=== PATIENT | male | born 1950 | race Native Hawaiian/Other Pacific Islander ===

== ENCOUNTER 2017-06-08 10:44 | Observation (INO) | payer OTHER ==
[2017-06-08 11:37] LABS: BASO # 0.1 K/uL (0.0-0.2); BASO % 0.7 % (0.0-2.0); EOS # 0.1 K/uL (0.0-0.7); EOS % 1.3 % (0.0-4.0); HEMOGLOBIN 14.3 g/dL (12.0-18.0); LYMPH # 1.4 K/uL (1.0-4.3); LYMPH % 18.4 % (20.0-40.0); MEAN CELL VOLUME 87.9 fL (80.0-94.0); MEAN CORPUSCULAR HEMOGLOBIN 30.8 pg (27.0-31.0); MEAN PLATELET VOLUME 7.7 fL (7.2-11.7); MONO # 0.4 K/uL (0.0-0.8); MONO % 5.4 % (0.0-10.0); NEUT # 5.6 K/uL (1.8-7.0); NEUT % 74.2 % (50.0-75.0); RBC 4.64 Mil/uL (4.40-5.90); RED CELL DISTRIBUTION WIDTH 12.9 % (11.5-14.5); WHITE BLOOD COUNT 7.5 K/uL (4.8-10.8)
[2017-06-08 11:53] LABS: ALB/GLOB RATIO 1.1 (1.0-2.1); ALBUMIN 3.9 g/dL (3.5-5.0); ALT/SGPT 24 U/L (21-72); AST/SGOT 28 U/L (17-59); BLOOD UREA NITROGEN 13 mg/dL (9-20); CALCIUM 8.9 mg/dl (8.6-10.4); GFR AFRICAN-AMERICAN > 60; GFR NON-AFRICAN AMERICAN > 60
[2017-06-08] MEDS ORDERED: Iodixanol 320 MG/ML 100 ML BOTTLE IV ONE (12:57)
--- NOTE | 2017-06-08 15:04 | CT ---
PROCEDURE: CT scan temporal bones dated 06/08/2017 COMPARISON: No prior study available for comparison TECHNIQUE: High resolution axial images of the temporal bones were obtained following intravenous injection of approximately 100 cc Visipaque 320 contrast material. . Coronal and sagittal reformats were generated. Radiation dose: Total exam DLP = 1410.79 mGy-cm. This CT exam was performed using one or more of the following dose reduction techniques: Automated exposure control, adjustment of the mA and/or kV according to patient size, and/or use of iterative reconstruction technique. HISTORY: Right ear drainage FINDINGS: The current study reveals a relatively large abscess collection that contains multiple bubbles of air and extends inferior and dorsal to the right pinna and extends superiorly into the right temporalis musculature. The abscess and inflammatory changes surrounding the external auditory canal though do not appear to extend into the canal itself. The subjacent cortical bone intact without destructive changes. Note that the inferior extent of this abscess is not completely visualized and appear to abut the posterior margin of the right parotid gland. It is unclear whether this involves the parotid gland itself or just abuts the parotid and results in some compressive effects. . . Note also that is unclear from this exam as to whether the right pinna itself is involved in the at aforementioned infectious process new. Clinical correlation with physical exam recommended. The soft tissues within the right external auditory canal as well as the subjacent cortical bone intact. The right middle ear canal is unremarkable. Right mastoid air complex slightly underpneumatized though otherwise clear. New The inner ear structures and internal auditory canals unremarkable. Note made of a small cerumen plug within the superficial margin left external auditory canal. The left middle ear canal unremarkable. . The left mastoid air complex slightly underpneumatized of clear. Inner ear structures and internal auditory canal on the left side unremarkable. Minor polypoid like mucosal thickening left and to a much lesser degree right maxillary antra. Minor mucosal thickening seen within a few ethmoid air cells extending superiorly into the inferior margin of the frontal sinus. IMPRESSION: There is an relatively large (that contains multiple bubbles of air) that involves the subcutaneous tissues abutting and dorsal to the right pinna extending superiorly into the right temporalis musculature. Surrounding infiltration changes in the subcutaneous fat as well. The abscess and inflammatory changes appear to surround the however margin of the external auditory canal though do not appear to extend into the canal itself. . No cortical destructive changes are identified. . Note that the inferior extent of the abscess is not visualized on this exam though does abut the posterior margin of the right parotid gland. There may be compressive effects on the posterior margin of the right parotid gland though is unclear whether the abscess on involves the parotid gland itself. Clinical correlation with physical exam recommended. Note also that is unclear from this exam as to whether the right pinna itself is involved in the at aforementioned infectious process new. Clinical correlation with physical exam recommended. Note that these findings were discussed with the Dr. Bess 2:48 p.m. with written down and read back verification.
--- NOTE | 2017-06-08 15:39 | C.PDOC ---
History Of Present Illness 66 year old male is sent to the ED by Tom for evaluation. Patient had been experiencing right ear discharge for 4-5 weeks. He was seen in Dr. Santos's office earlier today and his ear was flushed. Patient became dizzy for a few seconds, but his symptoms self-resolved. Patient did not experience dizziness afterwards and denies such symptoms at the time. He was sent to the ED for labwork and CT scan. Patient denies fever, chills. Chief Complaint (Nursing): ENT Problem History Per: Patient History/Exam Limitations: None Onset/Duration Of Symptoms: Other (4-5 weeks ) Current Symptoms Are (Timing): Better Past Medical History Reviewed: Historical Data, Nursing Documentation, Vital Signs Vital Signs: Last Vital Signs Temp 97.7 F 06/08/17 15:30 Pulse 80 06/08/17 15:30 Resp 18 06/08/17 15:30 BP 131/73 06/08/17 15:30 Pulse Ox 98 06/08/17 16:40 - Medical History PMH: No Chronic Diseases Surgical History: No Surg Hx Family History: States: Unknown Family Hx - Social History Hx Alcohol Use: No Hx Substance Use: No - Immunization History Hx Tetanus Toxoid Vaccination: No Hx Influenza Vaccination: No Hx Pneumococcal Vaccination: No Review Of Systems Constitutional: Negative for: Fever, Chills ENT: Positive for: Ear Discharge (right) Physical Exam - Physical Exam Appears: Non-toxic, No Acute Distress Skin: Normal Color, Warm, Dry Head: Atraumatic, Normacephalic Eye(s): bilateral: Normal Inspection Ear(s): Left: Normal, Right: Other (white discharge. Unable to visualize TM ) Oral Mucosa: Moist Neck: Supple Chest: Symmetrical, No Deformity, No Tenderness Cardiovascular: Rhythm Regular, No Murmur Respiratory: Normal Breath Sounds, No Rales, No Rhonchi, No Wheezing Extremity: Normal ROM, Capillary Refill (less than 2 seconds ) Neurological/Psych: Oriented x3, Normal Speech, Normal Cognition ED Course And Treatment - Laboratory Results Result Diagrams: 06/08/17 11:31 06/08/17 11:31 O2 Sat by Pulse Oximetry: 98 (on RA) Pulse Ox Interpretation: Normal Medical Decision Making Medical Decision Making: Impression: right ear discharge Plan: * bloodwork * CT Internal Auditory Canal * reassess and disposition Progress: Bloodwork and CT Internal Auditory Canal ordered and reviewed. Spoke with Dr. Santos after reviewing CT scan. Patient will be admitted to medicine for IV antibiotics and will get surgical consult. Case discussed with Dr. Ashley Rodriguez, who wishes to have Dr. Iyer as surgical consult. resident surgeon paged. Disposition - Disposition Disposition Time: 16:00 Condition: STABLE - Clinical Impression Clinical Impression: Abscess of church region - Scribe Statement The provider has reviewed the documentation as recorded by the Scribe (Lalitha Rodriguez) Provider Attestation: All medical record entries made by the Scribe were at my direction and personally dictated by me. I have reviewed the chart and agree that the record accurately reflects my personal performance of the history, physical exam, medical decision making, and the department course for this patient. I have also personally directed, reviewed, and agree with the discharge instructions and disposition.
[2017-06-08] MEDS ORDERED: Piperacill/Tazo 4.5gm in Dex 4.5 GM/100 ML BAG IVPB STA (16:17)
--- NOTE | 2017-06-08 18:34 | CP.PCM.HP ---
Past Patient History - Past Social History Smoking Status: Former Smoker - PSYCHIATRIC Hx Substance Use: No - SURGICAL HISTORY Hx Surgeries: No - ANESTHESIA Hx Anesthesia: No Meds Allergies/Adverse Reactions: Allergies Allergy/AdvReac Type Severity Reaction Status Date / Time No Known Allergies Allergy Unverified 06/08/17 10:56 Physical Exam - Constitutional Appears: Well - Head Exam Head Exam: ATRAUMATIC, NORMAL INSPECTION, NORMOCEPHALIC - Eye Exam Eye Exam: EOMI, Normal appearance, PERRL Pupil Exam: NORMAL ACCOMODATION, PERRL - ENT Exam ENT Exam: Mucous Membranes Moist, Normal Exam - Neck Exam Neck exam: Positive for: Normal Inspection - Respiratory Exam Respiratory Exam: Decreased Breath Sounds - Cardiovascular Exam Cardiovascular Exam: REGULAR RHYTHM, +S1, +S2 - GI/Abdominal Exam GI & Abdominal Exam: Diminished Bowel Sounds, Soft - Rectal Exam Rectal Exam: Deferred Results - Vital Signs Recent Vital Signs: Last Vital Signs Temp 97.7 F 06/08/17 15:30 Pulse 80 06/08/17 15:30 Resp 18 06/08/17 15:30 BP 131/73 06/08/17 15:30 Pulse Ox 98 06/08/17 18:14 - Labs Result Diagrams: 06/08/17 11:31 06/08/17 11:31 Labs: Laboratory Results - last 24 hr 06/08/17 06/08/17 11:31 11:31 WBC 7.5 RBC 4.64 Hgb 14.3 Hct 40.7 MCV 87.9 MCH 30.8 MCHC 35.0 RDW 12.9 Plt Count 235 MPV 7.7 Neut % (Auto) 74.2 Lymph % (Auto) 18.4 L [place] % (Auto) 5.4 Eos % (Auto) 1.3 Baso % (Auto) 0.7 Neut # (Auto) 5.6 Lymph # (Auto) 1.4 [place] # (Auto) 0.4 Eos # (Auto) 0.1 Baso # (Auto) 0.1 Sodium 137 Potassium 4.7 Chloride 99 Carbon Dioxide 29 Anion Gap 14 BUN 13 Creatinine 0.8 Est GFR ( Amer) > 60 Est GFR (Non-Af Amer) > 60 Random Glucose 111 H Calcium 8.9 Total Bilirubin 0.7 AST 28 ALT 24 Alkaline Phosphatase 55 Total Protein 7.3 Albumin 3.9 Globulin 3.4 Albumin/Globulin Ratio 1.1
[2017-06-08 18:57] VITALS: RESP 20
[2017-06-08] MEDS: Piperacill/Tazo 3.375gm in Dex 3.375 GM/50 ML BAG IVPB SCH (21:59)
[2017-06-09] MEDS: Piperacill/Tazo 3.375gm in Dex 3.375 GM/50 ML BAG IVPB SCH ×4 (02:19→20:49)
[2017-06-09] MEDS: Pantoprazole 40 mg EC Tab PO SCH (11:06)
[2017-06-09] MEDS: Enoxaparin 40 mg Syringe SC SCH (11:07)
--- NOTE | 2017-06-09 17:02 | CP.PCM.PN ---
Subjective - Date & Time of Evaluation Date of Evaluation: 06/09/17 Time of Evaluation: 07:40 - Subjective Subjective: clinically same Objective - Vital Signs/Intake and Output Vital Signs (last 24 hours): Temp Pulse Resp BP Pulse Ox 97.3 F L 84 20 113/65 98 06/09/17 16:26 06/09/17 16:26 06/09/17 16:26 06/09/17 16:26 06/09/17 16:26 - Medications Medications: Current Medications Enoxaparin Sodium (Lovenox) 40 mg SC DAILY [facility] Last Admin: 06/09/17 11:07 Dose: Not Given Piperacillin Sod/Tazobactam Sod (Zosyn 3.375 Gm Iv Premix) 3.375 gm in 50 mls @ 100 mls/hr IVPB Q6H [facility] PRN Reason: Protocol Stop: 06/18/17 21:01 Last Admin: 06/09/17 14:05 Dose: 100 mls/hr Pantoprazole Sodium (Protonix Ec Tab) 40 mg PO DAILY [facility] Last Admin: 06/09/17 11:06 Dose: Not Given Pneumococcal Polyvalent Vaccine (Pneumovax 23 Vaccine) 0.5 ml IM .ONCE ONE Stop: 06/11/17 10:01 - Labs Labs: 06/08/17 11:31 06/08/17 11:31 - Constitutional Appears: Well - Head Exam Head Exam: ATRAUMATIC, NORMAL INSPECTION, NORMOCEPHALIC - Eye Exam Eye Exam: EOMI, Normal appearance, PERRL Pupil Exam: NORMAL ACCOMODATION, PERRL - ENT Exam ENT Exam: Mucous Membranes Moist, Normal Exam - Neck Exam Neck Exam: Full ROM, Normal Inspection. absent: Lymphadenopathy - Respiratory Exam Respiratory Exam: Decreased Breath Sounds - Cardiovascular Exam Cardiovascular Exam: REGULAR RHYTHM, +S1, +S2 - GI/Abdominal Exam GI & Abdominal Exam: Soft, Diminished Bowel Sounds - Rectal Exam Rectal Exam: Deferred
[2017-06-10] MEDS: Piperacill/Tazo 3.375gm in Dex 3.375 GM/50 ML BAG IVPB SCH ×3 (03:17→14:38)
[2017-06-10] MEDS: Enoxaparin 40 mg Syringe SC SCH (10:09)
[2017-06-10] MEDS: Pantoprazole 40 mg EC Tab PO SCH (10:09)
--- NOTE | 2017-06-10 15:52 | CP.PCM.PN ---
Subjective - Date & Time of Evaluation Date of Evaluation: 06/10/17 Time of Evaluation: 08:00 - Subjective Subjective: clinically same Objective - Vital Signs/Intake and Output Vital Signs (last 24 hours): Temp Pulse Resp BP Pulse Ox 97.9 F 83 20 130/78 100 06/10/17 08:31 06/10/17 08:31 06/10/17 08:31 06/10/17 08:31 06/10/17 08:31 Intake and Output: 06/10/17 06/10/17 06:59 18:59 Intake Total 340 Balance 340 - Medications Medications: Current Medications Enoxaparin Sodium (Lovenox) 40 mg SC DAILY [facility] Last Admin: 06/10/17 10:09 Dose: 40 mg Piperacillin Sod/Tazobactam Sod (Zosyn 3.375 Gm Iv Premix) 3.375 gm in 50 mls @ 100 mls/hr IVPB Q6H [facility] PRN Reason: Protocol Stop: 06/18/17 21:01 Last Admin: 06/10/17 14:38 Dose: 100 mls/hr Pantoprazole Sodium (Protonix Ec Tab) 40 mg PO DAILY [facility] Last Admin: 06/10/17 10:09 Dose: 40 mg Pneumococcal Polyvalent Vaccine (Pneumovax 23 Vaccine) 0.5 ml IM .ONCE ONE Stop: 06/11/17 10:01 - Labs Labs: 06/08/17 11:31 06/08/17 11:31 - Constitutional Appears: Well - Head Exam Head Exam: ATRAUMATIC, NORMAL INSPECTION, NORMOCEPHALIC - Eye Exam Eye Exam: EOMI, Normal appearance, PERRL Pupil Exam: NORMAL ACCOMODATION, PERRL - ENT Exam ENT Exam: Mucous Membranes Moist, Normal Exam - Neck Exam Neck Exam: Full ROM, Normal Inspection. absent: Lymphadenopathy - Respiratory Exam Respiratory Exam: Decreased Breath Sounds - Cardiovascular Exam Cardiovascular Exam: REGULAR RHYTHM, +S1, +S2 - GI/Abdominal Exam GI & Abdominal Exam: Soft, Diminished Bowel Sounds - Rectal Exam Rectal Exam: Deferred
[2017-06-10 16:42] VITALS: BP 115/55; PULSE 78; TEMP 98.4; O2SAT 98
--- NOTE | 2017-06-10 18:30 | CP.PCM.CON ---
History of Present Illness - History of Present Illness History of Present Illness: General surgery consult note for Dr. Laura Connelly, PGY-1 Pt S & E at bedside. 66M w/no sig PMH consulted for R ear abscess. Pt reports intermittent purulent drainage and pain from right ear x 1 mo. Pt was seen by Dr. Santos as output with ear cleaning, without resolution of problem. Was sent to ED for admission and possible surgical intervention. Pt reports intermittent pain of right ear prior to purulent drainage. Pain is severe, non radiating. Admits to occasional dizziness, some episodes of diaphoresis, poor appetite. Denies N & V , F & C, changes in bowel or bladder habits, changes in vision, rhinorrhea. In ED CT auditory canal- with relatively large subQ fluid collection with air bubbles tissues abutting and dorsal to the right pinna extending superiorly into the right temporalis musculature. Surrounding infiltration changes in SubQ. No cortical destructive changes. PMH: Denies PSH: Denies All: NKDA SH: Former rolled tobacco smoker (quit 1 mo ago), denies ETOH or illicit drug use Review of Systems - Review of Systems All systems: reviewed and no additional remarkable complaints except - Constitutional Constitutional: absent: Chills, Fever, Headache - EENT Eyes: absent: Change in Vision Ears: Dizziness Nose/Mouth/Throat: absent: Sore Throat - Cardiovascular Cardiovascular: absent: Chest Pain - Respiratory Respiratory: absent: Cough - Gastrointestinal Gastrointestinal: absent: Abdominal Pain, Nausea, Vomiting - Musculoskeletal Musculoskeletal: absent: Numbness, Tingling - Integumentary Integumentary: absent: New Lesions - Neurological Neurological: Dizziness - Psychiatric Psychiatric: Change in Appetite (decreased) Past Patient History - Past Social History Smoking Status: Former Smoker - MUSCULOSKELETAL/RHEUMATOLOGICAL Hx Falls: No - PSYCHIATRIC Hx Substance Use: No - SURGICAL HISTORY Hx Surgeries: No - ANESTHESIA Hx Anesthesia: No Meds Allergies/Adverse Reactions: Allergies Allergy/AdvReac Type Severity Reaction Status Date / Time No Known Allergies Allergy Unverified 06/08/17 10:56 - Medications Medications: Current Medications Enoxaparin Sodium (Lovenox) 40 mg SC DAILY [facility] Last Admin: 06/10/17 10:09 Dose: 40 mg Piperacillin Sod/Tazobactam Sod (Zosyn 3.375 Gm Iv Premix) 3.375 gm in 50 mls @ 100 mls/hr IVPB Q6H [facility] PRN Reason: Protocol Stop: 06/18/17 21:01 Last Admin: 06/10/17 14:38 Dose: 100 mls/hr Pantoprazole Sodium (Protonix Ec Tab) 40 mg PO DAILY [facility] Last Admin: 06/10/17 10:09 Dose: 40 mg Pneumococcal Polyvalent Vaccine (Pneumovax 23 Vaccine) 0.5 ml IM .ONCE ONE Stop: 06/11/17 10:01 Physical Exam - Constitutional Appears: Non-toxic, No Acute Distress - Head Exam Head Exam: ATRAUMATIC, NORMAL INSPECTION, NORMOCEPHALIC - Eye Exam Eye Exam: EOMI, Normal appearance - ENT Exam ENT Exam: Mucous Membranes Moist. absent: Normal External Ear Exam (purulent discharge noted at right external ear), TM's Normal Bilaterally (Visible perforation of right TM on exam) - Neck Exam Neck exam: Positive for: Full Rom, Normal Inspection - Respiratory Exam Respiratory Exam: NORMAL BREATHING PATTERN - Cardiovascular Exam Cardiovascular Exam: REGULAR RHYTHM, +S1, +S2 - GI/Abdominal Exam GI & Abdominal Exam: Soft. absent: Tenderness - Extremities Exam Extremities exam: Positive for: normal inspection. Negative for: pedal edema - Neurological Exam Neurological exam: Alert, CN II-XII Intact, Oriented x3 - Psychiatric Exam Psychiatric exam: Normal Affect, Normal Mood - Skin Skin Exam: Dry, Intact, Normal Color, Warm Results - Vital Signs Recent Vital Signs: Last Vital Signs Temp 98.4 F 06/10/17 15:20 Pulse 78 06/10/17 15:20 Resp 20 06/10/17 15:20 BP 115/55 L 06/10/17 15:20 Pulse Ox 98 06/10/17 17:11 - Labs Result Diagrams: 06/08/17 11:31 06/08/17 11:31 Assessment & Plan - Assessment and Plan (Free Text) Assessment: 66M w/no sig PMH consulted for R Plan: Recommend OMFS consultation Pain control Recommend Abx Further mgmt as per primary and ENT teams No general surgical intervention at this time Thank you for this consult DW attending Maricel, PGY-1 - Date & Time Date: 06/09/17 Time: 13:00
[2017-06-11] MEDS ORDERED: Pneumococcal 23-Valent Vaccine IM ONE (10:00)
== END 2017-06-10 21:00 | disposition home or self-care (01) ==
LOC: C.ER 10:44 → C.9E 16:17 → C.3T 18:07
PROVIDERS: ADMIT Internal Medicine Nephrology; ATTEND Internal Medicine Nephrology
DX: H92.11 Otorrhea, right ear (principal); L02.01 Cutaneous abscess of face; Z87.891 Personal history of nicotine dependence
CPT/HCPCS: 70480; 80053; 85025; 96365; 99285; G0378; J1650; J2543; Q9967